=== PATIENT | male | born 1965 | race Caucasian/White ===

== ENCOUNTER 2024-09-02 10:03 | Outpatient (CLI) | payer BC | END 2024-09-02 10:04 | disposition home or self-care (01) | LOC: CSHDTY/OP 10:03 | PROVIDERS: ATTEND Surgery | DX: E66.01 Morbid (severe) obesity due to excess calories (principal) | CPT/HCPCS: 97802 ==

== ENCOUNTER 2024-10-03 09:57 | Outpatient (CLI) | payer BC | END 2024-10-03 09:58 | disposition home or self-care (01) | LOC: CSHDTY/OP 09:57 | PROVIDERS: ATTEND Surgery | DX: E66.01 Morbid (severe) obesity due to excess calories (principal) | CPT/HCPCS: 97802 ==

== ENCOUNTER 2024-11-03 09:04 | Outpatient (CLI) | payer BC | END 2024-11-03 09:05 | disposition home or self-care (01) | LOC: CSHDTY/OP 09:04 | PROVIDERS: ATTEND Surgery | DX: E66.01 Morbid (severe) obesity due to excess calories (principal) | CPT/HCPCS: 97802 ==